=== PATIENT | female | born 1955 | race African-American/Black ===

== ENCOUNTER 2016-11-08 16:09 | Emergency (ER) | payer MEDICAID, OTHER ==
[~2016-11-08 16:09] MED LIST: ADVA250A INH; AMLO10TA2 PO; ATEN50TA PO; CALC500T35 PO; CHOL1CAP8 PO; DOXE50CA3 PO; FLUT1SPR5 EACH NARE; FOLI1TAB4 PO; GABA300C5 PO; GABA600T PO; HYDR-3534 PO; HYDR25TA5 PO; IBUP-232 PO; LISI-515 PO; LORA10TA PO; MAPA650T PO; NAPR220T95 PO; POTA99TA PO; PREV30CA11 PO; THEO300T30 PO; VENTAER INH; ZAFI1TAB4 PO
[2016-11-08] MEDS ORDERED: TETANUS/DIPHTHERIA TOXOID ADULT 0.5 ML VIAL IM ONE (16:45)
[2016-11-08] MEDS ORDERED: ACETAMINOPHEN/HYDROcodone 325 MG/5 MG TAB PO ONE (16:45)
[2016-11-08 16:47] VITALS: BP 164/80; PULSE 72; RESP 18
--- NOTE | 2016-11-08 17:36 | RADRPT ---
EXAM DATE/TIME: 11/08/2016 17:19 [facility] COMPARISON: No previous studies available for comparison. INDICATIONS : Fall and hit posterior head today. RADIATION DOSE: 35.73 CTDIvol (mGy) MEDICAL HISTORY : Cardiovascular disease. Hypertension. SURGICAL HISTORY : None. ENCOUNTER: Initial ACUITY: 1 day PAIN SCALE: 7/10 LOCATION: posterior Cranial. TECHNIQUE: Multiple contiguous axial images were obtained of the head. Using automated exposure control and adj ustment of the mA and/or kV according to patient size, radiation dose was kept as low as reasonably a chievable to obtain optimal diagnostic quality images. FINDINGS: CEREBRUM: The ventricles are normal for age. No evidence of midline shift, mass lesion, hemorrhage or acute in farction. No extra-axial fluid collections are seen. POSTERIOR FOSSA: The cerebellum and brainstem are intact. The 4th ventricle is midline. The cerebellopontine angle i s unremarkable. EXTRACRANIAL: The visualized portion of the orbits is intact. SKULL: The calvaria is intact. No evidence of skull fracture. CONCLUSION: Normal examination. Cali Tamayo MD on November 08, 2016 at 17:34 Board Certified Radiologist. This report was verified electronically.
--- NOTE | 2016-11-08 18:18 | PD ---
HPI Chief Complaint: Laceration/Skin Injury Time Seen by Provider: 18:13 Travel History International Travel<30 days: No Contact w/Intl Traveler<30days: No Traveled to known affect area: No History of Present Illness HPI 61-year-old female that presents to the ED for evaluation of occipital head injury. Per patient she accidentally fell after one of the wheels on her walker felt off and she tripped and fell and hit her back of her head. She did not lose consciousness. Per patient she has pain to the back of the head. She has diffuse a walker because she has difficulty ambulating secondary to severe pain to the left leg worst she has had multiple surgeries. She denies any chest pain or shortness of breath. No back pain or neck pain. She does have a history of chronic pain for which she takes Lortab. She denies any blurry vision or double vision. Denies any numbness, tilling, weakness. Per patient she does have an appointment with her orthopedic surgeon for evaluation tomorrow of the pain on the left leg for possible surgery. She states that her pain is 5 out of 10. She does have a superficial cut to the back of the head. She denies knowing when her last tetanus shot was. PFSH Past Medical History Anemia: Yes Arthritis: Yes (RA ) Asthma: Yes Cardiovascular Problems: Yes (HTN) Cirrhosis: Yes Diminished Hearing: No GERD: Yes Hypertension: Yes Respiratory: Yes (ASTHMA) Immunizations Current: Yes Menopausal: Yes Past Surgical History Section: Yes Hysterectomy: Yes (PARTIAL) Social History Alcohol Use: Yes (occassionally ) Tobacco Use: No Substance Use: No Allergies-Medications (Allergen,Severity, Reaction): Coded Allergies: Tomato (Verified Allergy, Intermediate, HIVES, 11/08/16) Reported Meds & Prescriptions Reported Meds & Active Scripts Active Reported Mapap Arthritis Pain ER 8 HR (Acetaminophen) 650 Mg Tab 650 Mg PO Q8HR PRN Flonase Allergy Relief Nasal Early (Fluticasone Nasal Early) 50 Mcg/Act Early 1 Early EACH NARE DAILY PRN Aleve (Naproxen Sodium) 220 Mg Tab 220 Mg PO TID PRN Ibuprofen 600 Mg Tab 600 Mg PO Q8HR PRN Hydrochlorothiazide 25 Mg Tab 25 Mg PO DAILY Theophylline ER 12 HR (Theophylline) 300 Mg Tab 300 Mg PO BID Amlodipine (Amlodipine Besylate) 10 Mg Tab 10 Mg PO HS Calcium (Oyster Shell) 500 Mg Tab 500 Mg PO BID Vitamin D3 (Cholecalciferol) 400 Unit Cap 400 Units PO DAILY Potassium 99 Mg Tab 99 Mg PO BID Zafirlukast 20 Mg Tab 20 Mg PO HS Ventolin Hfa 18 GM Inh (Albuterol Sulfate) 90 Mcg/Act Aer 2 Puff INH Q4H PRN Prevacid (Lansoprazole) 30 Mg Capdr 30 Mg PO DAILY Lortab (Hydrocodone-Acetaminophen) 7.5-325 Mg Tab 1 Tab PO Q4H PRN Loratadine 10 Mg Tab 10 Mg PO DAILY Lisinopril 20 Mg Tab 20 Mg PO DAILY Gabapentin 600 Mg Tab 600 Mg PO HS Gabapentin 300 Mg Cap 300 Mg PO DAILY Folate (Folic Acid) 1 Mg Tab 1 Mg PO DAILY Doxepin (Doxepin HCl) 50 Mg Cap 50 Mg PO HS Atenolol 50 Mg Tab 50 Mg PO HS Advair Diskus Inh (Fluticasone-Salmeterol Inh) 250-50 Mcg/Blist Aer 1 Puff INH BID Rinse mouth after use. Review of Systems Except as stated in HPI: all other systems reviewed are Neg Physical Exam Narrative GENERAL: SKIN: Warm and dry. Patient has a very superficial less than half a centimeter abrasion/laceration that is less than 1 mm deep on the occipital scalp. Minimal bleeding noted. HEAD: Atraumatic. Normocephalic. EYES: Pupils equal and round 4 mm reactive to light and accomodation. No scleral icterus. No injection or drainage. ENT: No nasal bleeding or discharge. Mucous membranes pink and moist. Tongue is midline. No uvula deviation. NECK: Trachea midline. No JVD. CARDIOVASCULAR: Regular rate and rhythm. No murmurs, S3, S4. RESPIRATORY: No accessory muscle use. Clear to auscultation. Breath sounds equal bilaterally. GASTROINTESTINAL: Abdomen soft, non-tender, nondistended. Hepatic and splenic margins not palpable. MUSCULOSKELETAL: Extremities without clubbing, cyanosis, or edema. No obvious deformities. Full range of motion of the upper extremities with no pain. No thoracic, cervical, lumbar spine tenderness to palpation. Patient does have a knee immobilizer on the left knee so she cannot fully move the left leg. 2+ pulses bilaterally. Neurovascular intact. NEUROLOGICAL: Awake and alert. No obvious cranial nerve deficits. Motor grossly within normal limits. Five out of 5 muscle strength in the arms and legs. Normal speech. PSYCHIATRIC: Appropriate mood and affect; insight and judgment normal. Data Data Last Documented VS Vital Signs Date Time Temp Pulse Resp B/P Pulse Ox O2 Delivery O2 Flow Rate FiO2 11/08/16 18:53 98.4 16 98 Room Air 11/08/16 16:47 72 164/[address] Brain W/O Iv Contrast(Rout) (11/08/16 16:35) Acetamin-Hydrocod 325-5 Mg ([place] 5-325 (11/08/16 16:45) Tetanus/Diphtheria Tox Adult (Tetanus/Di (11/08/16 16:45) MDM Medical Decision Making Medical Screen Exam Complete: Yes Emergency Medical Condition: Yes Medical Record Reviewed: Yes Interpretation(s) Last Impressions Head CT 11/08/16 1635 Signed Impressions: Service Date/Time: Tuesday, November 08, 2016 17:19 - CONCLUSION: Normal examination. Cali Tamayo MD Differential Diagnosis Head injury versus laceration versus abrasion versus closed head injury Narrative Course 61-year-old female that presents to the ED for evaluation of head injury. Patient was properly examined and was found to have signs and symptoms consistent with appears to be possible injury. After explained procedure to the patient and she agreed to it laceration was repaired as stated in procedure note. Told to get staple removed in 7 days. Recommend wound care. Patient is agreeable with this. CT of the head was done and was negative for acute disease. Patient was given Lortab for pain here in the ED. Patient was told to follow up with PCP. Ice or warm compresses to areas of pain. See ED for any worsening symptoms. Procedures Procedure Narrative LACERATION LOCATION: occipital scalp LENGTH: 0.5 cm NUMBER OF STITCHES/RAJAT: 1 staple REPAIR: The area of the laceration was prepped with Betadine and sterilely draped. The laceration was infiltrated with 1% Lidocaine. The wound was copiously irrigated and explored without evidence of foreign body, tendon injury or neurovascular injury. The wound was closed using sterile stapler. This was a 1 layer repair. A sterile dressing was applied. The patient was advised to keep the dressing clean and dry. Patient tolerated the procedure well. Diagnosis Primary Impression: Head injury, acute Qualified Code: S09.90XA - Head injury, acute, initial encounter Additional Impression: Abrasion Patient Instructions: General Instructions Additional Instructions: Motrin or Tylenol for pain. Follow with PCP. See ED for any worsening symptoms. Get staple removed in 7 days. Med/Other Pt SpecificInfo: Prescription(s) given Disposition: 01 DISCHARGE HOME Condition: Stable Alejandro Palma Nov 08, 2016 18:18
[2016-11-08 18:53] VITALS: RESP 16; TEMP 98.4; O2SAT 98
== END 2016-11-08 19:19 | disposition home or self-care (01) ==
LOC: NEPB 16:09
DX: S09.90XA Unspecified injury of head, initial encounter (principal); S00.01XA Abrasion of scalp, initial encounter; M79.605 Pain in left leg; Z23 Encounter for immunization; J45.909 Unspecified asthma, uncomplicated; I10 Essential (primary) hypertension; W01.10XA Fall on same level from slipping, tripping and stumbling with subsequent striking against unspecified object, initial encounter; Y93.01 Activity, walking, marching and hiking
CPT/HCPCS: 12001; 70450; 90471; 90714

== ENCOUNTER 2017-06-27 19:41 | Emergency (ER) | payer MEDICARE, MEDICAID ==
[~2017-06-27] VITALS: Ht 162.6 cm; Wt 109.0 kg
[2017-06-27 19:53] VITALS: BP 185/97; PULSE 101; RESP 16; TEMP 98.1; O2SAT 97
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
--- NOTE | 2017-06-27 22:08 | RADRPT ---
EXAM DATE/TIME: 06/27/2017 21:47 [facility] COMPARISON: No previous studies available for comparison. INDICATIONS : Patient fell today and complains of left knee pain. MEDICAL HISTORY : None. SURGICAL HISTORY : Left knee orif. ENCOUNTER: Initial ACUITY: 1 day PAIN SCORE: 10/10 LOCATION: Left Knee FINDINGS: Patient has long stem left total knee arthroplasty. There is screw and plate fixation laterally of th e distal femur. Severe bone dissolution seen around the femoral component of the arthroplasty and wit h an associated varus deformity again seen. Chronic appearing hypertrophic bone seen around the dista l femur, especially posteriorly. Mild lucency laterally around the tibial component, not changed. Nothing convincing for an acute fracture. CONCLUSION: 1. 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 2. No acute fracture or acute-appearing malalignment demonstrated. Sameer Rhodes MD on June 27, 2017 at 22:03 Board Certified Radiologist. This report was verified electronically.
--- NOTE | 2017-06-27 22:09 | RADRPT ---
EXAM DATE/TIME: 06/27/2017 21:48 [facility] COMPARISON: KNEE LEFT COMPLETE (4VWS), June 27, 2017, 21:47. INDICATIONS : Patient fell and complains of left upper leg pain. MEDICAL HISTORY : None. SURGICAL HISTORY : Left femur ORIF. ENCOUNTER: Initial ACUITY: 1 day PAIN SCORE: 10/10 LOCATION: Left Femur FINDINGS: Lateral plate with multiple screws seen along the entire length of the left femur including a trochan teric claw. No acute fractures demonstrated. Chronic loosening of the femoral component of a left tot al knee arthroplasty is seen and please refer to the left knee x-ray report. CONCLUSION: No acute fracture or other acute abnormality seen of the left femur. Sameer Rhodes MD on June 27, 2017 at 22:07 Board Certified Radiologist. This report was verified electronically.
[2017-06-27] MEDS ORDERED: oxyCODONE/ACETAMINOPHEN 5 MG/325 MG TAB PO ONE (22:30)
[2017-06-27] MEDS ORDERED: SODIUM CHLORIDE 0.9% FLUSH 10 ML FLUSH IV FLUSH PRN (22:30)
== END 2017-06-27 23:48 | disposition home or self-care (01) ==
LOC: NEPD 19:41
DX: M25.562 Pain in left knee (principal); W19.XXXA Unspecified fall, initial encounter; X37.0XXA Hurricane, initial encounter; Z91.81 History of falling; Z96.652 Presence of left artificial knee joint
CPT/HCPCS: 73552; 73564; 99284; L1830